=== PATIENT | male | born 1940 | race African-American/Black ===

== ENCOUNTER 2019-10-19 05:44 | Emergency (ER) | payer OTHER ==
[~2019-10-19] VITALS: Ht 175.3 cm; Wt 81.7 kg
[2019-10-19] MEDS ORDERED: PHOSPHA 250 NE250 MG PO (06:23)
[2019-10-19] MEDS ORDERED: ASA81BEC PO (06:24)
[2019-10-19] MEDS ORDERED: LISINOPRIL2.5 MG PO (06:24)
[2019-10-19] MEDS ORDERED: ATORVASTATIN CA10 MG PO (06:24)
[2019-10-19] MEDS ORDERED: TAMSULOSIN HCL0.4 MG PO (06:24)
[2019-10-19] MEDS ORDERED: NORVASC5 MG PO (06:24)
[2019-10-19] MEDS ORDERED: NOVOLOG FL100 UNIT/M SUBQ (06:25)
[2019-10-19] MEDS ORDERED: PREDNISONE 5 MG5 M1 PO (06:25)
[2019-10-19] MEDS ORDERED: COLACE100 MG PO (06:25)
[2019-10-19] MEDS ORDERED: LANTUS SOL100 UNIT/1 SUBQ (06:26)
[2019-10-19] MEDS ORDERED: FAMOTIDINE 20 M20 MG PO (06:26)
[2019-10-19] MEDS ORDERED: MYCOPHENOLIC A360 MG PO (06:26)
[2019-10-19] MEDS ORDERED: TACROLIMUS0.5 MG PO (06:26)
[2019-10-19] MEDS ORDERED: FUROSEMIDE 20 M20 MG PO (06:27)
[2019-10-19 06:39] LABS: URINE BILIRUBIN NEGATIVE (Negative); URINE BLOOD 2+ (Negative); URINE CLARITY HAZY; URINE COLOR YELLOW; URINE GLUCOSE-RANDOM* 3+ (Negative); URINE KETONES NEGATIVE (Negative); URINE LEUKOCYTES-REFLEX 2+ (Negative); URINE NITRITE-REFLEX POSITIVE (Negative); URINE PROTEIN (DIPSTICK) 1+ (Negative); URINE SPECIFIC GRAVITY 1.015 (1.005-1.035)
[2019-10-19 06:49] LABS: CASTS None Seen /LPF (None Seen); SQUAMOUS 0-3 Few /LPF (0-3)
[2019-10-19 06:51] LABS: BACTERIA-REFLEX >30 Many /HPF (None Seen); CRYSTALS None Seen /LPF (None Seen); URINE WBC-REFLEX >25 Many /HPF (0-5)
[2019-10-19 06:52] LABS: URINE RBC 0-2 Rare /HPF (0-2); WBC CLUMPS Moderate (None Seen)
[2019-10-19] MEDS ORDERED: KEFLEX500 M1 PO (08:22)
[2019-10-19 08:49] VITALS: BP 165/76
== END 2019-10-19 08:50 | disposition home or self-care (01) ==
LOC: ER 05:44
PROVIDERS: Student in an Organized Health Care Education/Training Program
DX: N39.0 Urinary tract infection, site not specified (principal); Z88.8 Allergy status to other drugs, medicaments and biological substances